=== PATIENT | male | born 1990 | race Caucasian/White ===

== ENCOUNTER 2017-05-11 19:26 | Emergency (ER) | payer MEDICAID ==
[~2017-05-11] VITALS: Ht 182.9 cm; Wt 113.0 kg
[2017-05-11 19:38] VITALS: Ht 182.9 cm; Wt 113.0 kg
[2017-05-11] MEDS ORDERED: SOD CHLORIDE 0.9% 1,000 ML IV STA (21:49)
[2017-05-11] MEDS ORDERED: ONDANSETRON 4 MG INJ IV STA (21:49)
[2017-05-11] MEDS ORDERED: HYDROmorphONE 1 MG/ML SYG IV STA (21:49)
--- NOTE | 2017-05-11 22:45 | RADRPT ---
PROCEDURE: Limited ultrasound of the gallbladder. CLINICAL INDICATION: 26 years of age, male. Abdominal pain. TECHNIQUE: Multiple real-time longitudinal and transverse images of the gallbladder and the bile d ucts were acquired utilizing a curved array transducer. Images were reviewed on a high-resolution [facility] workstation. COMPARISON: None available. FINDINGS: Pancreas: Not well visualized due to bowel gas. Liver appearance: Mildly echogenic parenchyma Liver length: 17.9 cm Bile Ducts: No intrahepatic or extrahepatic biliary ductal dilatation. CBD: 0.2 cm. Gallbladder: Normal. Main portal vein is patent with hepatopetal flow. Right kidney length: 10 cm. Right kidney appearance: Mild hydronephrosis Other: None. IMPRESSION: Mildly echogenic liver parenchyma may indicate mild hepatic steatosis. Gallbladder appears normal. Mild right hydronephrosis. In this clinical setting of unexplained abdominal pain, the patient may benefit from renal colic CT. RPTAT: HCTS Physician Briana Date Time Electronically viewed and signed by Physician Briana on 05/11/2017 22:44 /
[2017-05-11 22:48] LABS: BASOPHILS % 0.1 % (0.0-2.0); HEMATOCRIT 46.7 % (42.0-52.0); HEMOGLOBIN 16.2 g/dl (14.0-18.0); LYMPHOCYTES # 0.9 10^3/ul (0.8-2.9); LYMPHOCYTES % 6.1 % (15.0-51.0); MEAN CORPUSCULAR HEMOGLOBIN 30.4 pg (29.0-33.0); MEAN CORPUSCULAR HGB CONC 34.7 g/dl (32.0-37.0); MEAN CORPUSCULAR VOLUME 87.6 fl (82.0-101.0); MEAN PLATELET VOLUME 9.9 fl (7.4-10.4); MONOCYTE # 0.4 10^3/ul (0.3-0.9); MONOCYTES % 2.9 % (0.0-11.0); NEUTROPHILS % 90.5 % (39.0-77.0); PLATELET COUNT 334 10^3/UL (140-415); RED BLOOD COUNT 5.33 10^6/ul (4.70-6.10); RED CELL DISTRIBUTION WIDTH 12.4 % (11.5-14.5); WHITE BLOOD COUNT 14.7 10^3/ul (4.8-10.8)
[2017-05-11 23:10] LABS: ADD UMIC YES; UR AMORPHOUS CRYSTAL FEW /HPF (NONE SEEN); UR ASCORBIC ACID NEGATIVE (NEGATIVE); UR BACTERIA FEW /HPF (NONE SEEN); UR BILIRUBIN (Dip) NEGATIVE (NEGATIVE); UR BLOOD (Dip) 2+ mg/dL (NEGATIVE); UR CLARITY SLIGHTLY CLOUDY (CLEAR); UR COLOR YELLOW (YELLOW); UR GLUCOSE (Dip) NEGATIVE (NEGATIVE); UR KETONES (Dip) 1+ mg/dL (NEGATIVE); UR LEUKOCYTE ESTERASE (Dip) NEGATIVE Leu/ul (NEGATIVE); UR NITRITE (Dip) NEGATIVE (NEGATIVE); UR RBC > 182 /HPF (0-5); UR TOTAL PROTEIN (Dip) 1+ mg/dl (NEGATIVE); UR UROBILINOGEN (Dip) NEGATIVE (NEGATIVE)
[2017-05-11 23:14] LABS: ALBUMIN 4.9 g/dl (3.3-4.9); ALBUMIN/GLOBULIN RATIO 1.32; BILIRUBIN,INDIRECT 0.6 mg/dl (0-1.1); BILIRUBIN,TOTAL 0.6 mg/dl (0.2-1.3); CALCIUM 9.9 mg/dl (8.4-10.2); CREATININE 1.24 mg/dl (0.61-1.24); TOTAL PROTEIN 8.6 g/dl (6.1-8.1)
--- NOTE | 2017-05-11 23:27 | RADRPT ---
PROCEDURE: CT abdomen and pelvis without intravenous contrast. CLINICAL INDICATION: Pain. TECHNIQUE: CT of the abdomen/pelvis was performed utilizing axial images with reconstructions in s agittal and coronal planes. The administered radiation dose is CTDI 22.1 mGy, DLP 1419 mGy-cm. COMPARISON: No pertinent prior examinations were submitted for comparison. FINDINGS: Visualized Chest: The visualized lung bases are clear. Abdomen: The spleen, pancreas, gallbladder,and adrenal glands are unremarkable. The liver is diffusely dec reased in attenuation, compatible with hepatic steatosis. There is mild right hydronephrosis secondary to a 5 mm calculus at the ureteropelvic junction. The l eft kidney is without hydronephrosis. No other urinary calculi are seen. There is no evidence of bowel obstruction. The appendix is normal. No intra-abdominal free air is seen. Numerous diverticula are noted along the descending and sigmoid colon without evidence of div erticulitis. There is no evidence of intra-abdominal adenopathy or free fluid. Pelvis: There is no evidence of pelvic adenopathy or free fluid. The prostate and bladder are unremarkable. Osseous structures: Unremarkable. IMPRESSION: Mild right-sided obstructive uropathy secondary to a 5 mm calculus at the ureteropelvic junction. Hepatic steatosis. Sigmoid colonic diverticulosis. RPTAT: HIKT .Alexander Lopez MD, Date Time Electronically viewed and signed by .Alexander Lopez MD, on 05/11/2017 23:27 .T/
[2017-05-11] MEDS ORDERED: IBUP-1542 PO (23:40)
[2017-05-11] MEDS ORDERED: ONDA-43 PO (23:40)
[2017-05-11] MEDS ORDERED: HYDR-906 PO (23:40)
[2017-05-11] MEDS ORDERED: TAMS-14 PO (23:41)
[2017-05-11] MEDS ORDERED: KETOROLAC 30 MG INJ IV STA (23:51)
--- NOTE | 2017-05-11 23:51 | ERD ---
ER Documentation Chief Complaint Date/Time DATE: 05/11/17 TIME: 23:48 Chief Complaint RUQ abd pain x 1 day, vomiting HPI This is a 18-year-old male presents to the ER with right upper quadrant pain that started today at 3 PM. Pain radiates to his back and down his flank. He had multiple episodes of nonbilious nonbloody vomiting today. He denies any diarrhea. He states he did have a fever, however he did not take his temperature. He does admit to some hematuria however denies dysuria. Patient denies any chest pain or shortness of breath. ROS 12 point review of systems was done, all negative except per HPI. Medications Home Meds Active Scripts Tamsulosin Hcl* (Flomax*) 0.4 Mg Cap.er.24h, 0.4 MG PO QHS for 5 Days, CAP Prov:BERNIE REED 05/11/17 Ondansetron Hcl* (Zofran*) 4 Mg Tab, 4 MG PO Q4H Y for NAUSEA AND OR VOMITING for 3 Days, TAB Prov:BERNIE REED 05/11/17 Ibuprofen* (Motrin*) 600 Mg Tab, 600 MG PO Q6, #30 TAB Prov:BERNIE REED 05/11/17 Hydrocodone/Acetaminophen (Onarga 5-325 Tablet) 1 Each Tablet, 1 TAB PO Q6H Y for PAIN, #20 TAB Prov:BERNIE REED 05/11/17 Allergies Allergies: Coded Allergies: No Known Allergy (Unverified , 12/01/12) PMhx/Soc Medical and Surgical Hx: pt denies Medical Hx, pt denies Surgical Hx History of Surgery: No Anesthesia Reaction: No Hx Neurological Disorder: No Hx Respiratory Disorders: No Hx Cardiac Disorders: No Hx Psychiatric Problems: No Hx Miscellaneous Medical Probl: No Hx Alcohol Use: No Hx Substance Use: No Hx Tobacco Use: No Smoking Status: Never smoker Physical Exam Vitals Vital Signs Date Time Temp Pulse Resp B/P Pulse Ox O2 Delivery O2 Flow Rate FiO2 05/11/17 19:38 98.9 82 20 126/79 99 Physical Exam GENERAL: patient is in moderate distress 2/2 pain HEENT: Atraumatic. CHEST: Clear to auscultation bilaterally. There are no rales, wheezes or rhonchi. HEART: Regular rate and rhythm. No murmurs, clicks, rubs or gallops. ABDOMEN: soft and non distended, TTP in the RUQ. Good bowel sounds. No rebound or guarding. No gross peritonitis. No gross organomegaly or masses. No Hess sign or McBurney point tenderness. BACK: No midline or flank tenderness. NEURO: Alert and oriented. Result Diagram: 05/11/17222505/11/17 2226 Results 24 hrs Laboratory Tests Test 05/11/17 22:15 05/11/17 22:26 Urine Color YELLOW Urine Clarity SLIGHTLY CLOUDY Urine pH 8.0 Urine Specific [place] 1.020 Urine Ketones 1+mg/dL Urine Nitrite NEGATIVEmg/dL Urine Bilirubin NEGATIVEmg/dL Urine Urobilinogen NEGATIVEmg/dL Urine Leukocyte Esterase NEGATIVELeu/ul Urine Microscopic RBC > 182/HPF Urine Microscopic WBC 3/HPF Urine Amorphous Crystals FEW/HPF Urine Bacteria FEW/HPF Urine Hemoglobin 2+mg/dL Urine Glucose NEGATIVEmg/dL Urine Total Protein 1+mg/dl White Blood Count 14.710^3/ul Red Blood Count 5.3310^6/ul Hemoglobin 16.2g/dl Hematocrit 46.7% Mean Corpuscular Volume 87.6fl Mean Corpuscular Hemoglobin 30.4pg Mean Corpuscular Hemoglobin Concent 34.7g/dl Red Cell Distribution Width 12.4% Platelet Count 18661^3/UL Mean Platelet Volume 9.9fl Neutrophils % 90.5% Lymphocytes % 6.1% Monocytes % 2.9% Eosinophils % 0.0% Basophils % 0.1% Nucleated Red Blood Cells % 0.0/100WBC Neutrophils # (Manual) 13.310^3/ul Lymphocytes # 0.910^3/ul Monocytes # 0.410^3/ul Eosinophils # 0.010^3/ul Basophils # 0.010^3/ul Nucleated Red Blood Cells # 0.010^3/ul Sodium Level 145mmol/L Potassium Level 4.0mmol/L Chloride Level 103mmol/L Carbon Dioxide Level 22mmol/L Anion Gap 24 Blood Urea Nitrogen 14mg/dl Creatinine 1.24mg/dl Glucose Level 116mg/dl Calcium Level 9.9mg/dl Total Bilirubin 0.6mg/dl Direct Bilirubin 0.00mg/dl Indirect Bilirubin 0.6mg/dl Aspartate Amino Transf (AST/SGOT) 29IU/L Alanine Aminotransferase (ALT/SGPT) 42IU/L Alkaline Phosphatase 80IU/L Total Protein 8.6g/dl Albumin 4.9g/dl Globulin 3.70g/dl Albumin/Globulin Ratio 1.32 Lipase 84U/L Current Medications Medications (Trade) Dose Ordered Sig/Elizabeth Route PRN Reason Start Time Stop Time Status Last Admin Dose Admin Sodium Chloride (NS) 1,000 ml @ 1,000 mls/hr Q1H STAT IV 05/11/17 21:49 05/11/17 22:48 DC 05/11/17 22:22 Hydromorphone HCl (Dilaudid) 1 mg ONCE STAT IV 05/11/17 21:49 05/11/17 21:51 DC 05/11/17 22:23 Ondansetron HCl (Zofran Inj) 4 mg ONCE STAT IV 05/11/17 21:49 05/11/17 21:51 DC 05/11/17 22:22 Procedures/MDM Differential Diagnosis: GERD, gastritis, peptic ulcer disease, pancreatitis, cholecystitis, choledocholithiasis, biliary colic, cholangitis, [id number] , ACS/OH, Pnuemonia, kidney stone, obstructive stone, septic stone. This is a 26-year-old male presents to the ER with right upper quadrant abdominal pain and flank pain. Patient does appear to have a kidney stone that is about 5 mm. Patient's pain was controlled here in the ER, he is afebrile and he is well- appearing upon reexamination. Suspicion for septic stone is low. Patient will be sent home with Onarga, ibuprofen, Zofran, Flomax. Needs to follow-up with his primary care doctor within 1-2 days return to ER sooner if symptoms worsen. My medical decision making shared with the patient he understands and agrees with plan Departure Diagnosis: Primary Impression: Kidney stone Condition: Stable Patient Instructions: Kidney Stone W/ Colic Additional Instructions: Call your primary care doctor TOMORROW for an appointment during the next 1-2 days.See the doctor sooner or return here if your condition worsens before your appointment time. BERNIE REED May 11, 2017 23:50
[2017-05-12 00:06] VITALS: PULSE 87; RESP 18; TEMP 98
== END 2017-05-12 00:01 | disposition home or self-care (01) ==
LOC: FTE 19:26
DX: N20.0 Calculus of kidney (principal); R11.10 Vomiting, unspecified
CPT/HCPCS: 36415; 74176; 76705; 80053; 81001; 83690; 85025; 96374; 96375; J1170; J1885; J2405; J7030; Z7502